=== PATIENT | female | born 1985 | race Hispanic/Latino ===

== ENCOUNTER 2020-07-18 12:56 | Emergency (ER) | payer OTHER ==
[2020-07-18] MEDS ORDERED: SILVER SULFADIAZINE CREAM 50 GM TP ONE (13:57)
== END 2020-07-18 15:23 | disposition home or self-care (01) ==
LOC: EDH 12:56
DX: S20.419A Abrasion of unspecified back wall of thorax, initial encounter (principal); S50.812A Abrasion of left forearm, initial encounter; S50.811A Abrasion of right forearm, initial encounter; X58.XXXA Exposure to other specified factors, initial encounter; Y93.89 Activity, other specified; Y92.89 Other specified places as the place of occurrence of the external cause; Y99.8 Other external cause status
CPT/HCPCS: 81025